=== PATIENT | male | born 1945 | race Caucasian/White ===

== ENCOUNTER 2017-03-24 08:30 | Day surgery (SDC) | payer MEDICARE, OTHER ==
[~2017-03-24 08:30] MED LIST: Acetaminophen TAB* 325 MG PO PRN; Buffered Lidocaine 1% SYRIN* 5 ML/SYR SYRINGE INTRADERM ONE
[2017-03-24] MEDS ORDERED: Midazolam* 1 MG/ML 2 ML VIAL (2 MG) ONE (10:37)
[2017-03-24 11:14] VITALS: BP 151/70
[2017-03-24] MEDS ORDERED: Lidocaine 1% MPF* 2 ML VIAL ONE (12:10)
[2017-03-24] MEDS ORDERED: Lidocaine 2% EPI 1:200000 MPF* 20 ML VIAL ONE (12:10)
[2017-03-24] MEDS ORDERED: Phenylephrine 2.5% OPTH.SOL* 2 ML BTL ONE (12:10)
[2017-03-24] MEDS ORDERED: Proparacaine 0.5% OPHTH.SOL* 15 ML BTL ONE (12:10)
[2017-03-24] MEDS ORDERED: acetaZOLAMIDE TAB* 250 MG ONE (12:10)
[2017-03-24] MEDS ORDERED: Cyclopentolate 1% OPTH.SOL* 2 ML BTL ONE (12:10)
[2017-03-24] MEDS ORDERED: Flurbiprofen 0.03% OPTH.SOL* 2.5 ML BTL ONE (12:10)
[2017-03-24] MEDS ORDERED: Povidone Iodine 5% OPTH* 30 ML BTL ONE (12:10)
[2017-03-24] MEDS ORDERED: Neomycin/Polymy/Dex OPTH.SUSP* MAXITROL 0.1% 5 ML ONE (12:10)
--- NOTE | 2017-03-24 15:01 | OP ---
DATE OF OPERATION: 03/24/17 - [facility] DATE OF : 41 SURGEON: Marbin Renee M.D. PREOPERATIVE DIAGNOSIS: Cataract, right eye. POSTOPERATIVE DIAGNOSIS: Cataract, right eye. OPERATIVE PROCEDURE: Phacoemulsification, right eye with IOL. DESCRIPTION OF PROCEDURE: The patient was brought to the operating room after being given 1/2% Alcaine with epinephrine drops in the preoperative area. The eye was prepped and draped in the usual sterile fashion. Sterile drape and eyelid speculum were placed. Again, topical 1/2% Alcaine with epinephrine was given. A paracentesis incision was made at the 9 o'clock position with the No.75 blade. Clear cornea incision 2.2 x 2.2-mm was created at the 12 o'clock position starting at the anterior limbus using the 2.2-mm keratome. The anterior chamber was irrigated with 0.4 mL of 1% non-preservative intracameral lidocaine and filled with DisCoVisc. A capsulorrhexis was completed using the cystotome and the Utrata forceps. Hydrodissection was performed with balanced salt solution. The lens nucleus was removed with the Phacoemulsification handpiece without incident. Cortex was removed with the irrigation-aspiration handpiece. The capsular bag was re-inflated using DisCoVisc and an SN60WF 17.5 implant was inserted with the shooter. A Malyugin ring was used to dilate the pupil because the pupil was very small. It was inserted prior to capsulorrhexis and removed after insertion of the lens. Indication for complex cataract surgery, pupil abnormalities requiring pupil dilation device. The irrigation-aspiration handpiece was used to remove all residual DisCoVisc. The eye was refilled with balanced salt solution and the wound checked and found to be watertight. Topical Maxitrol drops were given. [id number]/[facility] #: [id number] [facility]
== END 2017-03-24 11:28 | disposition home or self-care (01) ==
LOC: OREAST 08:30
PROVIDERS: ATTEND Specialist
DX: H25.811 Combined forms of age-related cataract, right eye (principal); I10 Essential (primary) hypertension; E78.00 Pure hypercholesterolemia, unspecified
CPT/HCPCS: A9270-GY; J2250; V2632

== ENCOUNTER 2021-04-25 10:44 | Inpatient (IN) ==
[2021-04-25] MEDS ORDERED: NS 0.9% 1000 ml BAG 1,000 ML IV ONE (11:29)
[2021-04-25] MEDS ORDERED: Metoprolol Tartrate 5 mg VIAL 5 ml VIAL (1 mg/ml) IV ONE (11:35)
[2021-04-25 11:58] LABS: Activated Partial Thrombo Time 28.5 seconds (26.0-38.0); INR 1.15 (0.86-1.15)
[2021-04-25 12:02] LABS: Albumin 4.1 g/dL (3.2-5.2); Albumin/Globulin Ratio 1.1 (1-3); C Reactive Protein 84.92 mg/L (<8.01); Calcium 9.7 mg/dL (8.6-10.3); EGFR African American 42.6 (>60); EGFR Non-African American 35.2 (>60); Globulin 3.6 g/dL (2-4); Potassium 4.2 mmol/L (3.5-5.0); Total Bilirubin 0.9 mg/dL (0.2-1.0); Total Protein 7.7 g/dL (6.4-8.9); Troponin I 0.01 ng/mL (<0.03)
[2021-04-25 12:08] LABS: Hematocrit 29 % (42-52); Hemoglobin 10.5 g/dL (14.0-18.0); Mean Corpuscular HGB Conc 36 g/dL (31-36); Mean Corpuscular Hemoglobin 35 pg (27-31); Mean Corpuscular Volume 98 fL (80-94); Platelet Count 71 10^3/uL (150-450); Red Blood Count 2.99 10^6 /uL (4.18-5.48); Red Cell Distribution Width 16 % (10-15); White Blood Count 5.7 10^3/uL (3.5-10.8)
[2021-04-25 12:09] LABS: Alcohol, S < 10 mg/dL (<10)
[2021-04-25 12:43] LABS: ABS Eosinophils 0.1 10^3/ul (0-0.6); ABS Lymphocytes 1.3 10^3/ul (1.0-4.8); ABS Monocytes 0.6 10^3/ul (0-0.8); ABS Neutrophils 3.7 10^3/ul (1.5-7.7); Anisocytosis 2+; Eosinophil % 2.3 %; Lymphocyte % 21.9 %; Nucleated Red Blood Cells % 0.6
[2021-04-25 15:06] LABS: Troponin I 0.03 ng/mL (<0.03)
[2021-04-25] MEDS ORDERED: metroNIDAZOLE IV 500 MG/100ML 500 MG/100 ML BAG IVPB ONE (15:16)
[2021-04-25] MEDS ORDERED: Cefepime 1 GM in Dextrose 1 GM/50 ML BAG IV ONE (15:16)
[2021-04-25 17:37] LABS: Troponin I 0.03 ng/mL (<0.03)
[2021-04-25] MEDS ORDERED: Dextrose 50% Syringe 50 ml 25 GM/50 ML SYRINGE IV PUSH PRN (18:05)
[2021-04-25] MEDS ORDERED: Al Hydrox/Mg Hydrox/Simet LIQ 30 ML UDC PO PRN (18:12)
[2021-04-25 19:37] LABS: Vitamin B12 584 pg/mL (180-914)
[2021-04-25] MEDS ORDERED: Digoxin IV 0.5 MG/2 ML AMP (0.25 MG/ML) IV SLOW PU ONE (20:51)
[2021-04-25] MEDS: Pantoprazole VIAL 40 MG VIAL IV SCH (22:56)
[2021-04-25] MEDS: Nitro Patch/OINT Remove PATCH PATCH OFF SCH (23:53)
[2021-04-25] MEDS: Heparin 5000 UNITS/ML 1 mL VIAL SUBCUT SCH (23:54)
[2021-04-26] MEDS: metroNIDAZOLE IV 500 MG/100ML 500 MG/100 ML BAG IVPB SCH ×3 (04:41→17:31)
[2021-04-26] MEDS: Heparin 5000 UNITS/ML 1 mL VIAL SUBCUT SCH ×3 (04:59→22:02)
[2021-04-26] MEDS: Cefepime 1 GM in Dextrose 1 GM/50 ML BAG IV SCH ×2 (05:00→22:00)
[2021-04-26 05:22] LABS: Calcium 9.2 mg/dL (8.6-10.3); EGFR African American 48.2 (>60); EGFR Non-African American 39.8 (>60); Hematocrit 26 % (42-52); Hemoglobin 9.2 g/dL (14.0-18.0); Magnesium 1.8 mg/dL (1.9-2.7); Mean Corpuscular HGB Conc 36 g/dL (31-36); Mean Corpuscular Hemoglobin 35 pg (27-31); Mean Corpuscular Volume 98 fL (80-94); Mean Platelet Volume 7.9 fL (7.4-10.4); Platelet Count 66 10^3/uL (150-450); Potassium 4.1 mmol/L (3.5-5.0); Red Blood Count 2.62 10^6 /uL (4.18-5.48); Red Cell Distribution Width 16 % (10-15); White Blood Count 4.8 10^3/uL (3.5-10.8)
[2021-04-26 05:27] LABS: % Iron Saturation 26 % (15-55); Iron 73 ug/dL (50-212); Total Iron Binding Capacity 280 mcg/dL (250-450); Transferrin 200 mg/dL (203-362); Unsaturated Iron Binding < 265 ug/dL
[2021-04-26 05:48] LABS: Ferritin 147.7 ng/mL (24-336)
[2021-04-26 06:01] LABS: ABS Eosinophils 0.1 10^3/ul (0-0.6); ABS Lymphocytes 1.5 10^3/ul (1.0-4.8); ABS Monocytes 0.5 10^3/ul (0-0.8); ABS Neutrophils 2.6 10^3/ul (1.5-7.7); Lymphocyte % 30.3 %; Nucleated Red Blood Cells % 0.3
[2021-04-26] MEDS: Vitamin THERAPEUTIC TAB PO SCH (08:26)
[2021-04-26] MEDS: Aspirin EC 81 mg TAB.EC (enteric coated) PO SCH (08:26)
[2021-04-26] MEDS: Nitroglycerin 0.2 mg/hr PATCH (5 mg) TRANSDERM SCH (08:27)
[2021-04-26] MEDS: Pantoprazole VIAL 40 MG VIAL IV SCH ×2 (08:27→22:10)
[2021-04-26 09:12] LABS: C Reactive Protein 42.87 mg/L (<8.01)
[2021-04-26 09:45] LABS: Folate > 20.00 ng/mL (5.90-24.80)
[2021-04-26] MEDS: NS 0.9% 1000 ml BAG 1,000 ML IV SCH (11:53)
[2021-04-26 13:18] LABS: Urine Creatinine Concentration 92.12 mg/dL
[2021-04-26] MEDS: Nitro Patch/OINT Remove PATCH PATCH OFF SCH (22:11)
[2021-04-27] MEDS: metroNIDAZOLE IV 500 MG/100ML 500 MG/100 ML BAG IVPB SCH ×3 (02:30→17:36)
[2021-04-27] MEDS: Heparin 5000 UNITS/ML 1 mL VIAL SUBCUT SCH ×3 (05:07→21:51)
[2021-04-27 06:36] LABS: C Reactive Protein 19.51 mg/L (<8.01); Calcium 8.9 mg/dL (8.6-10.3); EGFR African American 47.5 (>60); EGFR Non-African American 39.3 (>60); Potassium 4.2 mmol/L (3.5-5.0)
[2021-04-27 06:38] LABS: Hematocrit 24 % (42-52); Hemoglobin 8.6 g/dL (14.0-18.0); Mean Corpuscular HGB Conc 36 g/dL (31-36); Mean Corpuscular Hemoglobin 35 pg (27-31); Mean Corpuscular Volume 97 fL (80-94); Mean Platelet Volume 7.7 fL (7.4-10.4); Platelet Count 66 10^3/uL (150-450); Red Blood Count 2.46 10^6 /uL (4.18-5.48); Red Cell Distribution Width 15 % (10-15); White Blood Count 4.5 10^3/uL (3.5-10.8)
[2021-04-27 07:00] LABS: ABS Eosinophils 0.1 10^3/ul (0-0.6); ABS Lymphocytes 1.5 10^3/ul (1.0-4.8); ABS Monocytes 0.5 10^3/ul (0-0.8); ABS Neutrophils 2.4 10^3/ul (1.5-7.7); Eosinophil % 2.9 %; Lymphocyte % 33.4 %; Nucleated Red Blood Cells % 0.3
[2021-04-27] MEDS ORDERED: Perflutren Lipid Microsphere 3 ML VIAL ONE (07:50)
[2021-04-27] MEDS: NS 0.9% 1000 ml BAG 1,000 ML IV SCH ×2 (10:07→22:14)
[2021-04-27] MEDS: Cefepime 1 GM in Dextrose 1 GM/50 ML BAG IV SCH ×2 (10:07→22:06)
[2021-04-27] MEDS: Pantoprazole VIAL 40 MG VIAL IV SCH ×2 (10:09→21:51)
[2021-04-27] MEDS: Nitroglycerin 0.2 mg/hr PATCH (5 mg) TRANSDERM SCH (10:09)
[2021-04-27] MEDS: Vitamin THERAPEUTIC TAB PO SCH (10:09)
[2021-04-27] MEDS: Aspirin EC 81 mg TAB.EC (enteric coated) PO SCH (10:09)
[2021-04-27] MEDS: Nitro Patch/OINT Remove PATCH PATCH OFF SCH (21:53)
[2021-04-28] MEDS: metroNIDAZOLE IV 500 MG/100ML 500 MG/100 ML BAG IVPB SCH ×3 (00:43→17:16)
[2021-04-28] MEDS: Heparin 5000 UNITS/ML 1 mL VIAL SUBCUT SCH ×3 (05:00→21:52)
[2021-04-28] MEDS: NS 0.9% 1000 ml BAG 1,000 ML IV SCH (05:58)
[2021-04-28] MEDS: Vitamin THERAPEUTIC TAB PO SCH (07:54)
[2021-04-28] MEDS: Aspirin EC 81 mg TAB.EC (enteric coated) PO SCH (07:55)
[2021-04-28] MEDS: Pantoprazole VIAL 40 MG VIAL IV SCH ×2 (07:55→21:52)
[2021-04-28 07:58] LABS: Hematocrit 25 % (42-52); Mean Corpuscular HGB Conc 36 g/dL (31-36); Mean Corpuscular Hemoglobin 35 pg (27-31); Mean Corpuscular Volume 97 fL (80-94); Red Blood Count 2.55 10^6 /uL (4.18-5.48); Red Cell Distribution Width 15 % (10-15); White Blood Count 4.5 10^3/uL (3.5-10.8)
[2021-04-28] MEDS: Cefepime 1 GM in Dextrose 1 GM/50 ML BAG IV SCH ×2 (07:58→21:51)
[2021-04-28 07:59] LABS: ABS Eosinophils 0.1 10^3/ul (0-0.6); ABS Lymphocytes 1.3 10^3/ul (1.0-4.8); ABS Monocytes 0.5 10^3/ul (0-0.8); ABS Neutrophils 2.6 10^3/ul (1.5-7.7); Eosinophil % 2.9 %; Mean Platelet Volume 7.2 fL (7.4-10.4); Nucleated Red Blood Cells % 0.3; Platelet Count 67 10^3/uL (150-450)
[2021-04-28 08:12] LABS: Calcium 9.2 mg/dL (8.6-10.3); EGFR African American 46.3 (>60); EGFR Non-African American 38.2 (>60); Potassium 4.7 mmol/L (3.5-5.0)
[2021-04-28] MEDS ORDERED: Regadenoson 0.4 MG/5 ML SYRINGE ONE (12:21)
[2021-04-28] MEDS: Nitroglycerin 0.2 mg/hr PATCH (5 mg) TRANSDERM SCH (13:04)
[2021-04-28 14:49] LABS: Troponin I 0.01 ng/mL (<0.03)
[2021-04-28 15:45] LABS: Albumin 3.8 g/dL (3.2-5.2); Albumin/Globulin Ratio 1.3 (1-3); Direct Bilirubin 0.2 mg/dL (0.03-0.18); Globulin 2.9 g/dL (2-4); Indirect Bilirubin 0.5 mg/dL (0.3-1.0); Total Bilirubin 0.7 mg/dL (0.2-1.0); Total Protein 6.7 g/dL (6.4-8.9)
[2021-04-28 17:07] LABS: Urine Creatinine Concentration 61.52 mg/dL
[2021-04-28 21:40] LABS: RBC Parasite Smear No Parasites Seen (No Parasite)
[2021-04-28] MEDS: Nitro Patch/OINT Remove PATCH PATCH OFF SCH (21:52)
[2021-04-29] MEDS: metroNIDAZOLE IV 500 MG/100ML 500 MG/100 ML BAG IVPB SCH ×3 (00:25→16:33)
[2021-04-29] MEDS: Heparin 5000 UNITS/ML 1 mL VIAL SUBCUT SCH ×3 (05:14→21:14)
[2021-04-29 05:38] LABS: Hematocrit 25 % (42-52); Hemoglobin 8.6 g/dL (14.0-18.0); Mean Corpuscular HGB Conc 35 g/dL (31-36); Mean Corpuscular Hemoglobin 34 pg (27-31); Mean Corpuscular Volume 98 fL (80-94); Mean Platelet Volume 7.7 fL (7.4-10.4); Platelet Count 74 10^3/uL (150-450); Red Cell Distribution Width 16 % (10-15); White Blood Count 4.8 10^3/uL (3.5-10.8)
[2021-04-29 05:52] LABS: Albumin 3.5 g/dL (3.2-5.2); Albumin/Globulin Ratio 1.1 (1-3); Calcium 9.2 mg/dL (8.6-10.3); EGFR African American 48.2 (>60); EGFR Non-African American 39.8 (>60); Globulin 3.1 g/dL (2-4); Total Bilirubin 0.7 mg/dL (0.2-1.0); Total Protein 6.6 g/dL (6.4-8.9)
[2021-04-29 06:56] LABS: ABS Eosinophils 0.1 10^3/ul (0-0.6); ABS Lymphocytes 1.4 10^3/ul (1.0-4.8); ABS Monocytes 0.4 10^3/ul (0-0.8); ABS Neutrophils 2.7 10^3/ul (1.5-7.7); Eosinophil % 2.6 %; Lymphocyte % 29.7 %; Nucleated Red Blood Cells % 0.4
[2021-04-29] MEDS: Cefepime 1 GM in Dextrose 1 GM/50 ML BAG IV SCH ×2 (09:24→21:15)
[2021-04-29] MEDS: Aspirin EC 81 mg TAB.EC (enteric coated) PO SCH (09:30)
[2021-04-29] MEDS: Vitamin THERAPEUTIC TAB PO SCH (09:31)
[2021-04-29] MEDS: Pantoprazole VIAL 40 MG VIAL IV SCH ×2 (09:34→21:14)
[2021-04-29] MEDS: Nitroglycerin 0.2 mg/hr PATCH (5 mg) TRANSDERM SCH (09:36)
[2021-04-29 11:09] LABS: Magnesium 1.9 mg/dL (1.9-2.7)
[2021-04-29] MEDS ORDERED: Midazolam 10 mg/10 ml VIAL 1 mg/ml 10 ml VIAL (10 mg) ONE (14:48)
[2021-04-29] MEDS ORDERED: fentaNYL 100 mcg/2 ml 50 MCG/ML VIAL ONE (14:48)
[2021-04-29] MEDS ORDERED: PEG 3000 GI LAVAGE 1 GALLON PO ONE (16:28)
[2021-04-29] MEDS: Nitro Patch/OINT Remove PATCH PATCH OFF SCH (21:15)
[2021-04-30] MEDS: metroNIDAZOLE IV 500 MG/100ML 500 MG/100 ML BAG IVPB SCH ×3 (00:29→17:51)
[2021-04-30] MEDS: Heparin 5000 UNITS/ML 1 mL VIAL SUBCUT SCH ×2 (04:56→15:31)
[2021-04-30 06:10] LABS: Hematocrit 26 % (42-52); Mean Corpuscular HGB Conc 35 g/dL (31-36); Mean Corpuscular Hemoglobin 34 pg (27-31); Mean Corpuscular Volume 99 fL (80-94); Platelet Count 86 10^3/uL (150-450); Red Blood Count 2.61 10^6 /uL (4.18-5.48); Red Cell Distribution Width 16 % (10-15); White Blood Count 4.8 10^3/uL (3.5-10.8)
[2021-04-30 06:19] LABS: Albumin 3.8 g/dL (3.2-5.2); Albumin/Globulin Ratio 1.3 (1-3); Calcium 9.5 mg/dL (8.6-10.3); Globulin 2.9 g/dL (2-4); Potassium 3.9 mmol/L (3.5-5.0); Total Bilirubin 0.9 mg/dL (0.2-1.0); Total Protein 6.7 g/dL (6.4-8.9)
[2021-04-30] MEDS ORDERED: PEG 3000 GI LAVAGE 1 GALLON PO ONE (07:00)
[2021-04-30 07:45] LABS: ABS Eosinophils 0.1 10^3/ul (0-0.6); ABS Lymphocytes 1.3 10^3/ul (1.0-4.8); ABS Monocytes 0.4 10^3/ul (0-0.8); ABS Neutrophils 2.9 10^3/ul (1.5-7.7); Eosinophil % 2.7 %; Nucleated Red Blood Cells % 0.7
[2021-04-30] MEDS: Cefepime 1 GM in Dextrose 1 GM/50 ML BAG IV SCH (09:06)
[2021-04-30] MEDS: Pantoprazole VIAL 40 MG VIAL IV SCH (09:06)
[2021-04-30] MEDS: Nitroglycerin 0.2 mg/hr PATCH (5 mg) TRANSDERM SCH (09:07)
[2021-04-30] MEDS: Aspirin EC 81 mg TAB.EC (enteric coated) PO SCH (09:09)
[2021-04-30] MEDS: Vitamin THERAPEUTIC TAB PO SCH (09:10)
[2021-04-30] MEDS ORDERED: fentaNYL 100 mcg/2 ml 50 MCG/ML VIAL ONE (14:23)
[2021-04-30] MEDS ORDERED: Midazolam 10 mg/10 ml VIAL 1 mg/ml 10 ml VIAL (10 mg) ONE (14:23)
[2021-04-30 17:55] VITALS: BP 150/68
[2021-05-01 13:17] LABS: Anaplasma phagocytophilum Negative (Negative); B. miyamotoi PCR, B Negative (Negative); Babesia divergens/MO-1 Negative (Negative); Babesia ducani Negative (Negative); Ehrlichia chaffeensis Negative (Negative); Ehrlichia ewingii/canis Negative (Negative); Ehrlichia muris eauclairensis Negative (Negative)
== END 2021-04-30 18:32 | disposition home or self-care (01) | DRG 638 ==
LOC: ED 10:44 → MEDTELE 14:26
PROVIDERS: ADMIT Internal Medicine; ATTEND Internal Medicine

== ENCOUNTER 2022-10-11 11:06 | Observation (INO) ==
[2022-10-11] MEDS ORDERED: Morphine 4 MG/ML VIAL (1 ml) IV ONE ×2 (13:59→17:18)
[2022-10-11] MEDS ORDERED: Lactated Ringers 1000 ml BAG 1,000 ML IV ONE (13:59)
[2022-10-11] MEDS ORDERED: Ondansetron 4 mg VIAL 2 MG/ML 2 ml VIAL IV ONE ×2 (13:59→17:19)
[2022-10-11 14:31] LABS: Hematocrit 28 % (42-52); Hemoglobin 9.3 g/dL (14.0-18.0); Mean Corpuscular HGB Conc 34 g/dL (31-36); Mean Corpuscular Hemoglobin 34 pg (27-31); Mean Corpuscular Volume 102 fL (80-94); Red Cell Distribution Width 20 % (10-15); White Blood Count 4.7 10^3/uL (3.5-10.8)
[2022-10-11 14:51] LABS: Macrocytosis 1+; Tear Drop Cells 1+
[2022-10-11 14:52] LABS: Anisocytosis 1+
[2022-10-11 14:53] LABS: ABS Lymphocytes 0.4 10^3/ul (1.0-4.8); ABS Monocytes 0.3 10^3/ul (0-0.8); Eosinophil % 0.1 %; Lymphocyte % 8.9 %; Mean Platelet Volume 7.1 fL (7.4-10.4); Nucleated Red Blood Cells % 0.4; Platelet Count 50 10^3/uL (150-450)
[2022-10-11 15:31] LABS: Albumin 4.3 g/dL (3.2-5.2); Albumin/Globulin Ratio 1.7 (1-3); C Reactive Protein 22.12 mg/L (<8.01); Calcium 9.3 mg/dL (8.6-10.3); Globulin 2.6 g/dL (2-4); Magnesium 1.9 mg/dL (1.9-2.7); Potassium 4.2 mmol/L (3.5-5.0); Total Bilirubin 0.8 mg/dL (0.2-1.0); Total Protein 6.9 g/dL (6.4-8.9); eGFR CKD-EPI 26.6 (>60)
[2022-10-11 18:04] LABS: ABS Lymphocytes 0.4 10^3/ul (1.0-4.8); ABS Monocytes 0.3 10^3/ul (0-0.8); ABS Neutrophils 2.4 10^3/ul (1.5-7.7); Eosinophil % 0.1 %; Hematocrit 29 % (42-52); Hemoglobin 9.6 g/dL (14.0-18.0); Lymphocyte % 13.6 %; Mean Corpuscular HGB Conc 33 g/dL (31-36); Mean Corpuscular Hemoglobin 34 pg (27-31); Mean Corpuscular Volume 103 fL (80-94); Mean Platelet Volume 6.9 fL (7.4-10.4); Nucleated Red Blood Cells % 0.7; Platelet Count 51 10^3/uL (150-450); Red Blood Count 2.81 10^6 /uL (4.18-5.48); Red Cell Distribution Width 21 % (10-15); White Blood Count 3.2 10^3/uL (3.5-10.8)
[2022-10-11] MEDS ORDERED: Ondansetron 4 mg VIAL 2 MG/ML 2 ml VIAL IV PRN (21:49)
[2022-10-12 06:52] LABS: Hematocrit 25 % (42-52); Hemoglobin 8.7 g/dL (14.0-18.0); Mean Corpuscular HGB Conc 35 g/dL (31-36); Mean Corpuscular Hemoglobin 35 pg (27-31); Mean Corpuscular Volume 100 fL (80-94); Mean Platelet Volume 6.7 fL (7.4-10.4); Platelet Count 45 10^3/uL (150-450); Red Blood Count 2.49 10^6 /uL (4.18-5.48); Red Cell Distribution Width 20 % (10-15); White Blood Count 2.1 10^3/uL (3.5-10.8)
[2022-10-12 07:33] LABS: Calcium 8.8 mg/dL (8.6-10.3); Potassium 4.2 mmol/L (3.5-5.0); eGFR CKD-EPI 26.1 (>60)
[2022-10-12 08:18] LABS: ABS Lymphocytes 0.7 10^3/ul (1.0-4.8); ABS Monocytes 0.3 10^3/ul (0-0.8); ABS Neutrophils 1.1 10^3/ul (1.5-7.7); Eosinophil % 0.6 %; Nucleated Red Blood Cells % 0.4
[2022-10-12 09:03] LABS: C Reactive Protein 70.21 mg/L (<8.01)
[2022-10-12 11:17] VITALS: BP 134/67
== END 2022-10-12 13:50 | disposition home or self-care (01) ==
LOC: EDHOLD 11:06 → ED 11:06 → SUATTDRO 20:10 → MED 10-12 08:05
PROVIDERS: ADMIT Internal Medicine; ATTEND Internal Medicine

== ENCOUNTER 2022-12-16 10:21 | Observation (INO) ==
[2022-12-16] MEDS ORDERED: Cefepime 2 GM in Dextrose 2 GM/50 ML BAG IV ONE (11:23)
[2022-12-16] MEDS ORDERED: Azithromycin 500 mg/250 ml NS 500 MG/250 ML BAG IVPB ONE (11:23)
[2022-12-16 12:08] LABS: ABS Eosinophils 0.1 10^3/ul (0-0.6); ABS Lymphocytes 0.5 10^3/ul (1.0-4.8); ABS Monocytes 2.2 10^3/ul (0-0.8); ABS Neutrophils 1.5 10^3/ul (1.5-7.7); Eosinophil % 1.4 %; Hematocrit 27 % (42-52); Lymphocyte % 12.1 %; Mean Corpuscular HGB Conc 34 g/dL (31-36); Mean Corpuscular Hemoglobin 31 pg (27-31); Mean Corpuscular Volume 91 fL (80-94); Mean Platelet Volume 11.5 fL (7.4-10.4); Nucleated Red Blood Cells % 0.6; Platelet Count 4 10^3/uL (150-450); Red Blood Count 2.94 10^6 /uL (4.18-5.48); Red Cell Distribution Width 15 % (10-15); White Blood Count 4.3 10^3/uL (3.5-10.8)
[2022-12-16 12:11] LABS: INR 1.38 (0.88-1.18)
[2022-12-16 12:20] LABS: ALT 77 U/L (7-52); AST 36 U/L (13-39); Albumin 2.7 g/dL (3.2-5.2); Albumin/Globulin Ratio 1.1 (1-3); Alkaline Phosphatase 129 U/L (35-149); Anion Gap 6 mmol/L (2-11); Blood Urea Nitrogen 26 mg/dL (6-24); CO2 Carbon Dioxide 25 mmol/L (22-32); Chloride 105 mmol/L (101-111); Creatinine, Serum 2.13 mg/dL (0.67-1.17); Globulin 2.4 g/dL (2-4); Glucose 171 mg/dL (70-100); Lipase < 10 U/L (11.0-82.0); Magnesium 1.6 mg/dL (1.9-2.7); Potassium 3.9 mmol/L (3.5-5.0); Sodium 136 mmol/L (135-145); Total Protein 5.1 g/dL (6.4-8.9); eGFR CKD-EPI 30.9 (>60)
[2022-12-16 14:12] LABS: High Sensitivity Troponin 1 Hr 2540 pg/mL (<20)
[2022-12-16] MEDS ORDERED: NS 0.9% 1000 ml BAG 1,000 ML IV SCH (15:00)
[2022-12-16] MEDS: Morphine ORAL CONCENTRATE 5 MG/0.25 ML ORAL.SYRIN PO PRN ×3 (16:58→22:25)
[2022-12-17] MEDS ORDERED: Morphine ORAL CONCENTRATE 5 MG/0.25 ML ORAL.SYRIN PO PRN (00:11)
[2022-12-17] MEDS ORDERED: Lorazepam PYXIS KEY PRN (00:48)
[2022-12-17] MEDS ORDERED: Morphine 2 MG/ML SYRINGE IV PRN ×2 (00:48→01:55)
[2022-12-17] MEDS: LORazepam 2 mg VIAL 1 ml IV PUSH PRN ×4 (01:03→19:13)
[2022-12-17] MEDS: Atropine 1% (ORAL/SL) 15 ML BTL SL PRN ×4 (01:14→19:17)
[2022-12-17] MEDS ORDERED: Furosemide 40 mg/4 ml IV VIAL IV SLOW PU ONE ×2 (01:54→09:47)
[2022-12-17 11:37] VITALS: BP 121/71
== END 2022-12-18 01:00 | disposition expired ==
LOC: EDHOLD 10:21 → ED 10:21 → SUATTDRO 13:19 → MEDTELE 16:25
PROVIDERS: ADMIT Internal Medicine; ATTEND Hospitalist